=== PATIENT | male | born 1990 | race Caucasian/White ===

== ENCOUNTER 2018-08-17 03:00 | Emergency (ER) | payer SELFPAY ==
[~2018-08-17] VITALS: Ht 180.3 cm; Wt 90.9 kg
[2018-08-17 03:03] VITALS: TEMP 97.3
[2018-08-17] MEDS ORDERED: LEXAPRO 5MG5 MG (03:08)
[2018-08-17 09:03] VITALS: BP 119/64; PULSE 92
== END 2018-08-17 09:05 | disposition home or self-care (01) ==
LOC: COL.ER 03:00
DX: S00.83XA Contusion of other part of head, initial encounter (principal); F10.129 Alcohol abuse with intoxication, unspecified; F41.9 Anxiety disorder, unspecified; Y04.8XXA Assault by other bodily force, initial encounter